=== PATIENT | male | born 1945 | race Caucasian/White ===

== ENCOUNTER 2018-08-18 05:47 | Day surgery (SDC) | payer OTHER ==
[~2018-08-18] VITALS: Ht 167.6 cm; Wt 92.1 kg
--- NOTE | ~2018-08-18 | O ---
[facility] [place] [address] OPERATIVE REPORT Name: [facility] Room #: 150-13 [facility]..#: [id number] Admission: 08/18/18 Attend Phys: Janes Fitzgerald MD Discharge: Date of : 49 Report #: [id number] THIS REPORT FOR: //name// CC: Maicol Houser DATE OF SERVICE: 08/18/2018 SURGEON: Janes Fitzgerald MD [employer] DIRECTOR: None. PREOPERATIVE DIAGNOSIS: Bilateral upper lid dermatochalasia with superior visual field defect. POSTOPERATIVE DIAGNOSIS: Bilateral upper lid dermatochalasia with superior visual field defect. OPERATION PERFORMED: Bilateral upper lid functional blepharoplasty. ANESTHESIA: Local with IV sedation. COMPLICATIONS: None. INDICATIONS FOR SURGERY: This patient has acquired upper lid dermatochalasia with superior visual field loss both eyes because of excessive upper lid tissues to include skin and fat. Visual field testing demonstrates dense superior visual defects. Retesting with the upper lid elevated shows an improvement in visual field loss of over 30% and in excess of 12 degrees. The current procedures are undertaken in order to improve the patient's visual function. Informed consent was obtained to include but not limited to the loss of vision, bleeding, infection, scarring, failure to improve the problem and need for further surgery. DESCRIPTION OF OPERATION: The patient was taken to the operating room, where 2% Xylocaine with epinephrine mixed with equal parts of 0.75% Marcaine with Wydase was administered transcutaneously to each upper lid. The patient was then prepped and draped in the usual sterile fashion and a skin-marking pen was then utilized to outline an upper lid crease that was symmetrical on each side. Graefe forceps were then used to quantitate the redundant upper lid skin and it was similarly outlined. The incisions were then made with Bob scissors and a skin-muscle flap removed from each side with high-temp cautery. Hemostasis was achieved with the monopolar cautery as it was throughout the case. The orbital septum was then identified and the central and medial fat pads were [address] [address] OPERATIVE REPORT Name: [facility] Room #: 150-13 [facility] M.R.#: [id number] Admission: 08/18/18 Attend Phys: Janes Fitzgerald MD Discharge: Date of : 49 Report #: [id number] inspected. The redundant soft tissue was then sculpted with the monopolar cautery. The upper lid crease was then reformed with tightening of the pretarsal orbicularis muscle. The upper lid crease was then further reformed with multiple interrupted 6-0 chromic sutures. The skin was then closed with a running 6-0 plain gut suture. The wound was then cleaned and dressed with ophthalmic antibiotic ointment and a nonstick dressing. The patient was transported to the recovery area, where cold compresses were applied, having tolerated the procedure well with no anesthetic or operative complications being noted. By: [id number] Janes Fitzgerald MD /evie
[~2018-08-18 05:47] MED LIST: ACETAMINOPHEN325 M1 PO; ALLOPURINOL 30300 M1 PO; ALLOPURINOL 30300 M2 PO; AMLODIPINE BESY10 MG PO; ATENOLOL 50 MG50 M1 PO; AVELOX 400 MG400 M1 PO; AVODART0.5 MG PO; BUTALB-APAP-CA1 EACH PO; CARVEDILOL12.5 MG PO; CARVEDILOL25 MG PO; CATAPRES0.1 MG PO; CELEXA 20 MG TA20 M1 PO; CELEXA20 MG PO; CIPROFLOXACIN500 M1 PO; CITALOPRAM HBR40 MG PO; CLONIDINE HCL0.1 MG PO; CLONIDINE0.1 PO; DEMADEX20 MG PO; FELODIPINE ER10 MG PO; FLAGYL500 M1 PO; FLAGYL500 MG PO; FLOMAX PO; FLOMAX0.4 MG PO; GLUCOPHAGE500 MG PO; GLUCOSAMINE HC500 MG PO; HYDRALAZINE 5050 MG PO; HYDROCHLOROTHIA25 M2 PO; HYDROCHLOROTHIA50 MG PO; JANUVIA 50 MG T50 M1 PO; JANUVIA 50 MG T50 MG PO; JANUVIA50 MG PO; K-DUR 20 MEQ T20 MEQ PO; LASIX 20 MG TAB20 MG PO; LASIX 40 MG TAB40 M1 PO; LISINOPRIL40 MG PO; MAGNESIUM OXID400 MG PO; METFORMIN HCL500 MG PO; NIFEDICAL XL60 MG PO; NORCO 5-325 TA1 EACH PO; OMEPRAZOLE 20 M20 M1 PO; OSTEO BI-FLEX1 EAC1 PO; PRILOSEC 20 MG20 MG PO; SIMVASTATIN40 MG PO; SORINE 80 MG TA80 M1 PO; TOPROL XL25 MG PO; VENLAFAXINE HCL25 MG PO; VITAMIN B-12500 MCG PO; VITAMIN D1000 UNI1 PO; XARELTO10 MG PO; XARELTO15 MG PO; XARELTO20 MG PO; ZOCOR80 MG PO
[2018-08-18 11:30] VITALS: BP 161/81
== END 2018-08-18 13:40 | disposition home or self-care (01) ==
LOC: TBA 05:47 → OR 05:47
DX: H02.834 Dermatochalasis of left upper eyelid (principal); H02.831 Dermatochalasis of right upper eyelid; H53.462 Homonymous bilateral field defects, left side; H53.461 Homonymous bilateral field defects, right side; I11.0 Hypertensive heart disease with heart failure; I50.9 Heart failure, unspecified; K21.9 Gastro-esophageal reflux disease without esophagitis; E11.9 Type 2 diabetes mellitus without complications; E78.5 Hyperlipidemia, unspecified; G47.33 Obstructive sleep apnea (adult) (pediatric); N40.0 Benign prostatic hyperplasia without lower urinary tract symptoms; M10.9 Gout, unspecified; F32.9 Major depressive disorder, single episode, unspecified; F41.9 Anxiety disorder, unspecified; Z95.0 Presence of cardiac pacemaker; Z90.49 Acquired absence of other specified parts of digestive tract; Z87.19 Personal history of other diseases of the digestive system; Z98.890 Other specified postprocedural states; Z79.899 Other long term (current) drug therapy
CPT/HCPCS: 50010; 50101; 50386; 50398; 51636; 56531; 62110; 62850; 70005